=== PATIENT | male | born 1990 | race Caucasian/White ===

== ENCOUNTER 2019-06-29 20:13 | Emergency (ER) | payer OTHER ==
[2019-06-29 20:24] VITALS: BP 158/100
--- NOTE | 2019-06-29 20:27 | UC ---
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 Pt states he had something similar ~6 years ago and was dx with dysautonomia by ict teacher 158/100bp Pleasant 28 yo gentleman presents with spouse c/o chest pain upper left chest and upper shoulder, radiates to left neck. No sob / palpitations. Has had pain x 6 days. 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 Took propanolol 10mg at that time, but no relief. Does have a hx disautonomia x approx 6 years. Apprx 1x/ year he does get chest pain, but very quickly relieves with propanolol 10mg. This is different. No recent travel hx. Works primarily indoors as a student, recently moved to [facility]. No fever / chills. No rash. Some upper abd discomfort / bloating associated with cp, but does not feel this is a primary sx. No uri sx. No vis / aud changes. No loc. As part of the initial w/u last few year has had echocardiogram in the past, also stress test, and tilt test - not locally, does not know results perse. Not sure if endocrine testing. Pain today not alleviated / worsened by deep breath / position. No recent travel. - History of Current Complaint Chief Complaint: UCChestPain Stated Complaint: CHEST PAIN Time Seen by Provider: 06/29/19 20:27 Hx Obtained From: Patient Pain Intensity: 5 - Allergy/Home Medications Allergies/Adverse Reactions: Allergies Allergy/AdvReac Type Severity Reaction Status Date / Time No Known Allergies Allergy Verified 06/29/19 20:24 Home Medications: Home Medications Amphetamine MIXED SALT TAB* [Adderall TAB*] 10 mg PO BID 06/29/19 [History Confirmed 06/29/19] Propranolol TAB* [Inderal TAB*] 10 mg PO TID 06/29/19 [History Confirmed ] PMH/Surg Hx/FS Hx/Imm Hx Previously Healthy: Yes - mostly healthy, see hpi - Surgical History Surgical History: None - Family History Known Family History: Positive: Cardiac Disease - Social History Alcohol Use: Daily Alcohol Amount: 1 drink/day Substance Use Type: None Smoking Status (MU): Never Smoked Tobacco Review of Systems All Other Systems Reviewed And Are Negative: Yes Constitutional: Positive: Negative Skin: Positive: Negative Eyes: Positive: Negative ENT: Positive: Negative Respiratory: Positive: Other - see hpi Cardiovascular: Positive: Other - see hpi Gastrointestinal: Positive: Other - see hpi Motor: Positive: Negative Neurovascular: Positive: Negative Musculoskeletal: Positive: Negative Neurological: Positive: Negative Psychological: Positive: Negative Is Patient Immunocompromised?: No Physical Exam Triage Information Reviewed: Yes Appearance: Well-Nourished - sitting up, no acute distress. Vital Signs: Initial Vital Signs Temp 98.6 F 06/29/19 20:20 Pulse 81 06/29/19 20:20 Resp 16 06/29/19 20:20 BP 158/100 06/29/19 20:20 Pulse Ox 99 06/29/19 20:20 Vital Signs Reviewed: Yes Eye Exam: Normal ENT Exam: Normal ENT: Positive: Normal ENT inspection, Hearing grossly normal, Pharynx normal Neck exam: Normal Neck: Positive: Supple, Nontender, No Lymphadenopathy Respiratory Exam: Normal Respiratory: Positive: Chest non-tender, Lungs clear, Normal breath sounds, No respiratory distress, No accessory muscle use Cardiovascular Exam: Normal Cardiovascular: Positive: RRR, No Murmur, Pulses Normal, Brisk Capillary Refill Abdominal Exam: Normal Abdomen Description: Positive: Nontender Bowel Sounds: Positive: Present Musculoskeletal Exam: Normal Neurological Exam: Normal - grossly nonfocal Psychological Exam: Normal Skin Exam: Normal Course/Dx - Course Course Of Treatment: reviewed ekg, nsr 66 pbm. No old ekg for comp. SC 130, Qtc 404 reviewed bp with pt, elevated. Reviewed coa / tx plan. Will go to ED, spouse will drive. Declines EMS transport. Aware of risk of not going by ems. Aspirin 324mg po x 1. - Diagnoses Provider Diagnosis: Chest pain, High blood pressure Discharge ED - Sign-Out/Discharge Documenting (check all that apply): Patient Departure All imaging exams completed and their final reports reviewed: No Studies - Discharge Plan Condition: Guarded Disposition: HOME-RECOMMEND TO ED Patient Education Materials: Chest Pain (ED) Referrals: No Primary Care Phys,NOPCP [Primary Care Provider] - Additional Instructions: Please go to the Emergency Department. Stop and call 911 if any problems [address] the way. - Billing Disposition and Condition Condition: GUARDED Disposition: Home-Recommend to ED
[2019-06-29] MEDS ORDERED: Aspirin 81 mg CHEW TAB* 81 MG TAB.CHEW PO ONE (20:46)
== END 2019-06-29 20:55 | disposition home health service (06) ==
LOC: UCEAST 20:13
DX: R07.9 Chest pain, unspecified (principal); R03.0 Elevated blood-pressure reading, without diagnosis of hypertension
CPT/HCPCS: 93005; 99202; A9270-GY; G0463

== ENCOUNTER 2019-06-29 21:10 | Emergency (ER) | payer OTHER ==
--- NOTE | 2019-06-29 22:47 | ED ---
HPI Chest Pain - HPI Summary HPI Summary: 28 year old M arriving via private car from [facility] with complains of left sided chest pain radiating to left side neck x1 week. Similar episode 6 years ago but has never radiated into neck. Was seen by cardiology back then, had testing done, dx dysautonomia for which he takes propanolol. Has had some intermittent chest pain throughout the years for which he usually takes propanolol with relief. Developed light headedness yesterday. Tried propanolol with no relief. Also tried Tums yesterday with no relief. Was seen by [facility] yesterday who referred patient to [facility] or ED. Patient changing car oil today and developed worsening chest pain, shortness of breath, and diaphoresis. Went to [facility] where he had normal EKG done. Was referred to the ED. No nausea. Notes that he feels bloated which is usual when he develops chest pain. Took propanolol at 3 different times throughout the day today with no relief. No fever or cough. Symptoms rated 6/10 in severity. Symptoms aggravated by nothing. Symptoms alleviated by nothing. Medications and allergies reviewed. Hx exercise-induced asthma. Has not used inhaler. FHx cardiac disease. Former smoker in college. Admits to alcohol daily. 1 glass whiskey. No alcohol today. No recreational drugs. - History of Current Complaint Chief Complaint: EDChestPainROMI Time Seen by Provider: 06/29/19 22:38 Hx Obtained From: Patient Onset/Duration: Started Weeks Ago - 1, Still Present, Worse Since - today Timing: Intermittent Current Severity: Moderate Pain Intensity: 6 Pain Scale Used: 0-10 Numeric Chest Pain Radiates: Yes Chest Pain Radiates To:: Neck - left Aggravating Factor(s): Nothing Alleviating Factor(s): Nothing Associated Signs and Symptoms: Positive: Negative - nausea, fever, cough, Other : - shortness of breath, diaphoresis - Allergy/Home Medications Allergies/Adverse Reactions: Allergies Allergy/AdvReac Type Severity Reaction Status Date / Time No Known Allergies Allergy Verified 06/29/19 20:24 PMH/Surg Hx/FS Hx/Imm Hx Respiratory History: Reports: Hx Asthma - exercise-induced Neurological History: Reports: Other Neuro Impairments/Disorders - dysautonomia Psychiatric History: Reports: Hx Attention Deficit Hyperactivity Disorder - Surgical History Surgical History: None - Immunization History Date of Influenza Vaccine: 05/2019 Infectious Disease History: No Infectious Disease History: Denies: Traveled Outside the [place] in Last 30 Days - Family History Known Family History: Positive: Cardiac Disease - [place] father - Social History Alcohol Use: Daily Alcohol Amount: 1 drink/day Substance Use Type: Reports: None Hx Tobacco Use: Yes Smoking Status (MU): Former Smoker Review of Systems - ROS Summary Review of Systems Summary: Home Medications Medication Instructions Recorded Confirmed Type Amphetamine MIXED SALT TAB* 10 mg PO BID 06/29/19 06/29/19 History [Adderall TAB*] Propranolol TAB* [Inderal TAB*] 10 mg PO TID 06/29/19 06/29/19 History Positive: Skin Diaphoresis. Negative: Fever Positive: Chest Pain Positive: Shortness Of Breath. Negative: Cough Negative: Nausea All Other Systems Reviewed And Are Negative: Yes Physical Exam - Summary Physical Exam Summary: General: Well-developed, Well-nourished FEMALE. No acute distress. Mildly anxious appearing. HEENT: Normocephalic, Atraumatic. Eyes: Conjuctiva normal, PERRL. Oropharynx: Clear, mucous membranes moist, (-) exudates. Neck: Soft, FROM, (-) lymphadenopathy, (-) thyromegaly, (-) JVD. Cardiovascular: Normal sinus rhythm, (-) murmur. Lungs: Clear to auscultation bilaterally (-) wheezes, (-) rales, (-) rhonchi. Abdomen: Soft, non-tender, non-distended, (-) organomegaly, normal bowel sounds. Back: (-) CVA tenderness Extremities: No edema. Skin: Warm, dry, (-) rash. Neuro: Alert and oriented x3, no focal deficits. Psychiatric: Mood normal, affect normal. Triage Information Reviewed: Yes Vital Signs On Initial Exam: Initial Vitals Temp Pulse Resp BP Pulse Ox 98 F 71 18 152/104 100 06/29/19 21:16 06/29/19 21:16 06/29/19 21:16 06/29/19 21:16 06/29/19 21:16 Vital Signs Reviewed: Yes Procedures - Sedation Patient Received Moderate/Deep Sedation with Procedure: No Diagnostics - Vital Signs Vital Signs Temp Pulse Resp BP Pulse Ox 06/29/19 22:15 98.3 F 61 20 143/94 99 06/29/19 22:11 63 143/94 100 06/29/19 21:16 98 F 71 18 152/104 100 - Laboratory Result Diagrams: 06/29/19 23:33 06/29/19 23:33 Lab Statement: Any lab studies that have been ordered have been reviewed, and results considered in the medical decision making process. - Radiology CXR Radiology Interpretation Completed By: ED Physician Summary of Radiographic Findings: No infiltrate. No pleural effusion. PENDING OFFICIAL REPORT. - EKG 2113 Cardiac Rate: NL - 67 BPM EKG Rhythm: Sinus Rhythm Summary of EKG Findings: EKG at 2113 reveals normal sinus rhythm with rate of 67 BPM, no acute changes, no ischemic changes. This EKG was reviewed and interpreted by Dr. Al. Re-Evaluation - Re-Evaluation First Eval Re-Evaluation Time: 00:26 Comment: I have discussed results with the patient and symptoms have resolved. Discussed symptoms that warrant immediate return to ED. Chest Pain Course/Dx - Course Course Of Treatment: 28-year-old male with shortness of breath or chest discomfort. History of this many years ago. Underwent testing and found to have autonomic dystonia. Patient took propranolol 3 times today. He states when this happens he gets tachycardic and dizzy lightheaded. Symptoms are worse tonight. Workup essentially negative. Patient is improved symptomatically. Discharged to home. Follow up with PCP and establish with a cardiology. Follow-up sooner for any worsening symptoms. - Diagnoses Provider Diagnoses: Chest pain Discharge ED - Sign-Out/Discharge Documenting (check all that apply): Patient Departure - Discharge Plan Condition: Stable Disposition: HOME Patient Education Materials: Chest Pain (ED) Referrals: [facility] - Ra MAYNARD [Primary Care Provider] - 3 Days Additional Instructions: Follow up with [facility] in 3 days. Return to the Emergency Department for new or worsening symptoms. - Billing Disposition and Condition Condition: STABLE Disposition: Home - Attestation Statements Document Initiated by Scribe: Yes Documenting Scribe: Allyson Santillan Provider For Whom Evanibjaky is Documenting (Include Credential): Ebonie Al MD Scribe Attestation: Allyson Cabrera, scribed for Ebonie Al MD on 06/30/19 at 0600. Scribe Documentation Reviewed: Yes Provider Attestation: The documentation as recorded by the scribe, Allyson Santillan accurately reflects the service I personally performed and the decisions made by me, Ebonie Al MD Status of Kinjal Document: Viewed
[2019-06-29 23:40] LABS: ABS Eosinophils 0.1 10^3/ul (0-0.6); ABS Lymphocytes 2.8 10^3/ul (1.0-4.8); ABS Monocytes 0.5 10^3/ul (0-0.8); ABS Neutrophils 5.2 10^3/ul (1.5-7.7); Eosinophil % 1.3 %; Hematocrit 39 % (42-52); Hemoglobin 13.7 g/dL (14.0-18.0); Lymphocyte % 32.1 %; Mean Corpuscular HGB Conc 35 g/dL (31-36); Mean Corpuscular Hemoglobin 31 pg (27-31); Mean Corpuscular Volume 90 fL (80-94); Mean Platelet Volume 7.8 fL (7.4-10.4); Nucleated Red Blood Cells % 0.2; Platelet Count 224 10^3/uL (150-450); Red Blood Count 4.39 10^6 /uL (4.18-5.48); Red Cell Distribution Width 13 % (10-15); White Blood Count 8.6 10^3/uL (3.5-10.8)
[2019-06-29 23:46] LABS: INR 1.15 (0.82-1.09)
[2019-06-29 23:58] LABS: Albumin 4.3 g/dL (3.2-5.2); Albumin/Globulin Ratio 1.9 (1-3); BUN/Creatinine Ratio 15.8 (8-20); Calcium 9.7 mg/dL (8.6-10.3); EGFR African American 107.2 (>60); EGFR Non-African American 88.6 (>60); Globulin 2.3 g/dL (2-4); Potassium 3.7 mmol/L (3.5-5.0); Total Bilirubin 0.4 mg/dL (0.2-1.0); Total Protein 6.6 g/dL (6.4-8.9)
[2019-06-30 00:23] LABS: TSH (Thyroid Stimulating Horm) 1.64 mcIU/mL (0.34-5.60)
[2019-06-30 00:43] VITALS: BP 144/97
== END 2019-06-30 00:41 | disposition home or self-care (01) ==
LOC: ED 21:10
DX: R07.89 Other chest pain (principal); Z87.891 Personal history of nicotine dependence; F90.9 Attention-deficit hyperactivity disorder, unspecified type
CPT/HCPCS: 36415; 71045; 80053; 83605; 84443; 84484; 85025; 85610; 93005; 99282